=== PATIENT | female | born 1970 | race Caucasian/White ===

== ENCOUNTER 2020-12-14 08:48 | Day surgery (SDC) | payer OTHER ==
[2020-12-07 16:15] LABS: CLARITY,URINE CLEAR (Clear); COLOR,URINE YELLOW (Yellow); GLUCOSE, URINE NEGATIVE (Neg); KETONES,URINE NEGATIVE (Neg); LEUKOCYTE ESTERASE ,URINE NEGATIVE (Neg); NITRITES, URINE NEGATIVE (Neg); OCCULT BLOOD,URINE NEGATIVE (Neg); PROTEIN,URINE NEGATIVE (Neg); UROBILINOGEN,URINE 0.2 E.U/dL (0.2-1.0)
[2020-12-07 16:16] LABS: UA COLLECTION TYPE CLN CATCH MIDSTREAM
[2020-12-07 16:41] LABS: BASOPHILS % (AUTO) 0.4 % (0-1); EOSINOPHILS # (AUTO) 0.1 X10'3 (0-0.9); EOSINOPHILS % (AUTO) 0.8 % (0-6); LYMPHOCYTES % (AUTO) 27.7 % (21-51); MEAN CORPUSCULAR HEMOGLOBIN 29.9 PG (27.0-31.0); MEAN CORPUSCULAR VOLUME 90.6 FL (78-98); MEAN PLATELET VOLUME 7.8 FL (7.4-10.4); MONOCYTES # (AUTO) 0.5 X10'3 (0-0.9); MONOCYTES % (AUTO) 6.7 % (2-12); NEUTROPHILS # (AUTO) 4.6 X10'3 (1.8-7.7); NEUTROPHILS % (AUTO) 64.4 % (42-75); PRE OP HEMATOCRIT 40.8 % (35.0-45.0); PRE OP HEMOGLOBIN 13.5 g/dL (12.0-16.0); PRE OP PLATELET COUNT 248 X10'3 (140-440); RED CELL DISTRIBUTION WIDTH 12.9 % (11.5-14.5)
[2020-12-07 16:52] LABS: ALBUMIN 4.4 G/DL (3.4-5.0); ALBUMIN/GLOBULIN RATIO 1.4 (1.1-1.5); ALKALINE PHOSPHATASE 73 IU/L (46-116); BLOOD UREA NITROGEN 17 MG/DL (7-18); BUN/CREATININE RATIO 22.1 (6.6-38.0); CALCIUM 8.3 MG/DL (8.5-10.1); CHLORIDE 105 MMOL/L (99-107); CREATININE 0.77 MG/DL (0.40-0.90); PRE OP ALT 32 U/L (30-65); PRE OP ANION GAP 8 (8-16); PRE OP AST 22 U/L (10-37); PRE OP BILIRUB, TOTAL 0.6 MG/DL (0.0-1.0); PRE OP GLUCOSE 92 MG/DL (70-104); PRE OP POTASSIUM 3.8 MMOL/L (3.4-5.1); PRE OP SODIUM 143 MMOL/L (135-145); TOTAL CARBON DIOXIDE 29.6 MMOL/L (24-32); TOTAL PROTEIN 7.6 G/DL (6.4-8.2); eGFR 79 ML/MIN
[2020-12-14] VITALS (8 sets, daily range): BP systolic 101–129; BP diastolic 48–72
[~2020-12-14] VITALS: Ht 154.9 cm; Wt 48.0 kg
[~2020-12-14 08:48] MED LIST: CHOL400T27 PO; ECHI125T2 PO; ELDERBERRY PO; GABA-530 PO; MELO7.5T12 PO; PRAM0.5T3 PO; VITC500T PO; VITE1000C PO; ZINC50TA67 PO; [UNRECOGNIZED DRUG - CODE] PO; bacitracin 15gm ointment TP ONE; cefazolin/dext.iso 2gm/100ml IV ONE; famotidine 20mg tablet PO ONE; ringers solution, lacted 1,000 ML IV SCH
[2020-12-14] MEDS ORDERED: sevoflurane 250ml liquid IH ONE (10:42)
[2020-12-14] MEDS ORDERED: fentaNYL/PF 50MCG/1 ML 2ML syringe ONE ×2 (10:51)
[2020-12-14] MEDS ORDERED: midazolam 1 mg/ML 2ml injection ONE (10:52)
[2020-12-14] MEDS ORDERED: ROPIVAcaine 0.5% (5mg/ml) 30ml vial ONE ×2 (11:11)
[2020-12-14] MEDS ORDERED: dexamethasone sod phosphate 4mg/ml inj. ONE (11:11)
[2020-12-14] MEDS ORDERED: propofol inj 20 ML IV ONE (11:12)
[2020-12-14] MEDS ORDERED: LIDOcaine 2% (20mg/ml) 5ml vial ONE (11:12)
[2020-12-14] MEDS ORDERED: ondansetron/PF 4mg/2ml inj ONE (11:14)
[2020-12-14] MEDS ORDERED: ketorolac trometh. 30mg/ml inj. ONE (11:27)
[2020-12-14] MEDS ORDERED: acetaminophen 1,000mg/100ml IV 100 ML IV ONE (11:27)
[2020-12-14] MEDS ORDERED: labetalol 20mg/4ml (5mg/ml) syringe IV PRN (11:45)
[2020-12-14] MEDS ORDERED: morphine 2 MG/ML inj. syringe IV PRN (11:45)
[2020-12-14] MEDS ORDERED: ondansetron/PF 4mg/2ml inj IV PRN (11:45)
[2020-12-14] MEDS ORDERED: fentaNYL/PF 50MCG/1 ML 2ML syringe IV PRN ×2 (11:45)
[2020-12-14] MEDS ORDERED: hydrALAZINE 20mg/ml inj. IV PRN (11:45)
[2020-12-14] MEDS ORDERED: morphine 4 MG/ML inj SYRINge IV PRN (11:45)
[2020-12-14] MEDS ORDERED: ringers solution, lacted 1,000 ML IV SCH (11:45)
--- NOTE | 2020-12-14 12:50 | NUR ---
ADMITTED TO PACU FROM OR ACCOMPANIED BY ANESTHESIA. INTIAL PHYSICAL ASSESSMENT DONE AND RECORDED. REPORT RECEIVED FROM ANESTHESIA.
[2020-12-14] MEDS ORDERED: oxyCODONE/APAP 5-325mg tablet PO ONE ×2 (13:05→13:15)
--- NOTE | 2020-12-14 14:00 | NUR ---
DISCHARGE CRITERIA MET, DISCHARGE INSTRUCTIONS GIVEN, DEMONSTRATES VERBAL UNDERSTANDING. DISCHARGED HOME IN GOOD CONDITION.
== END 2020-12-14 14:00 | disposition home or self-care (01) ==
LOC: PAS 08:48
PROVIDERS: ATTEND Podiatrist Foot & Ankle Surgery
DX: G57.52 Tarsal tunnel syndrome, left lower limb (principal); M72.2 Plantar fascial fibromatosis; M20.22 Hallux rigidus, left foot; M19.072 Primary osteoarthritis, left ankle and foot; Z20.822 Contact with and (suspected) exposure to COVID-19; Z79.899 Other long term (current) drug therapy; G89.18 Other acute postprocedural pain; Z79.82 Long term (current) use of aspirin; Z88.8 Allergy status to other drugs, medicaments and biological substances; Z90.710 Acquired absence of both cervix and uterus; Z98.51 Tubal ligation status; Z98.890 Other specified postprocedural states; Z72.89 Other problems related to lifestyle
CPT/HCPCS: 28035; 28060; 28750; 36415; 64445; 64447; 73620; 76000; 76942; 80053; 81003; 82948; 85025; 93005; A6223; C1713; J0131; J1100; J1885; J2001; J2250; J2405; J2704; J3010; U0003; U0005; Z7506; Z7508; Z7512; A4215; A4618; A6253; A6449; A7000; J2795; J7120